=== PATIENT | female | born 1985 | race Caucasian/White ===

== ENCOUNTER 2017-12-05 06:31 | Emergency (ER) | payer OTHER ==
[~2017-12-05] VITALS: Ht 160 cm; Wt 102.1 kg
[2017-12-05] MEDS ORDERED: SYNTHROID50 MCG (06:39)
[2017-12-05] MEDS ORDERED: PRENATAL + DHA1 EAC1 (06:39)
== END 2017-12-05 16:06 | disposition home or self-care (01) ==
LOC: ER 06:31
DX: O20.8 Other hemorrhage in early pregnancy (principal); Z34.01 Encounter for supervision of normal first pregnancy, first trimester

== ENCOUNTER → 2018-01-18 | Emergency (ER) | payer OTHER ==
[~2018-01-18] VITALS: Ht 160 cm; Wt 106.1 kg
[~2018-01-18] MED LIST: PRENATAL + DHA1 EAC1; SYNTHROID50 MCG
== END | disposition home or self-care (01) ==
LOC: ER 10:30
DX: O26.891 Other specified pregnancy related conditions, first trimester (principal); S30.0XXA Contusion of lower back and pelvis, initial encounter; Z34.01 Encounter for supervision of normal first pregnancy, first trimester; V49.69XA Unspecified car occupant injured in collision with other motor vehicles in traffic accident, initial encounter; Y93.89 Activity, other specified; Y92.488 Other paved roadways as the place of occurrence of the external cause; Y99.8 Other external cause status

== ENCOUNTER 2018-07-07 14:46 | Inpatient (IN) | payer OTHER ==
[~2018-07-07] VITALS: Ht 160 cm; Wt 3.2 kg
== END 2018-07-20 12:36 | disposition home or self-care (01) | DRG 785 ==
LOC: O/R 07-17 06:33 → OB/GYN 07-17 08:30
PROVIDERS: ADMIT Obstetrics & Gynecology
PROC: 0UB50ZZ Excision of Right Fallopian Tube, Open Approach (ICD-10-PCS; 2018-07-17)
PROC: 4A1HXCZ Monitoring of Products of Conception, Cardiac Rate, External Approach (ICD-10-PCS; 2018-07-17)
PROC: 10D00Z1 Extraction of Products of Conception, Low, Open Approach (ICD-10-PCS; principal; 2018-07-17 08:30)
DX: O82 Encounter for cesarean delivery without indication (principal); Z3A.39 39 weeks gestation of pregnancy; Z37.0 Single live birth; N83.8 Other noninflammatory disorders of ovary, fallopian tube and broad ligament